=== PATIENT | female | born 1945 | race Caucasian/White ===

== ENCOUNTER 2020-04-02 08:35 | Emergency (ER) | payer OTHER ==
[2020-04-02 08:41] VITALS: BMI 26.7
[2020-04-02] MEDS ORDERED: SODIUM CHLORIDE 0.9% 1000 ML INFUS.BAG IV ONE (09:10)
[2020-04-02] MEDS ORDERED: KETOROLAC TROMETHAMINE 15 MG/ML VIAL IVPUSH ONE (09:10)
[2020-04-02] MEDS ORDERED: ONDANSETRON 4 MG/2 ML VIAL IVPUSH ONE (09:10)
[2020-04-02] MEDS ORDERED: KETOROLAC TROMETHAMINE 15 MG/ML VIAL ONE (09:11)
[2020-04-02 09:28] LABS: BASO % 0.4 % (0-2.0); EOS % 0.8 % (0-4.5); HEMATOCRIT 37.9 % (32.4-45.2); HEMOGLOBIN 12.3 GM/dL (10.7-15.3); LYMPH % 16.8 % (8-40); MCHC 32.4 g/dl (32.0-36.0); MEAN CELL VOLUME 86.5 fl (80-96); MEAN PLT VOLUME 7.7 fl (7.5-11.1); MONO % 7.6 % (3.8-10.2); NEUT % 74.4 % (42.8-82.8); PLATELET COUNT 268 K/MM3 (134-434); RBC 4.38 M/mm3 (3.60-5.2); RDW 14.1 % (11.6-15.6); WHITE BLOOD COUNT 8.5 K/mm3 (4.0-10.0)
[2020-04-02 09:29] LABS: URINE APPEARANCE CLEAR; URINE BILIRUBIN NEGATIVE (NEGATIVE); URINE COLOR YELLOW; URINE GLUCOSE (UA) NEGATIVE (NEGATIVE); URINE KETONE NEGATIVE (NEGATIVE); URINE LEUK ESTERASE NEGATIVE (NEGATIVE); URINE NITRITE NEGATIVE (NEGATIVE); URINE PROTEIN NEGATIVE (NEGATIVE); URINE UROBILINOGEN 0.2 mg/dL (0.2-1.0)
[2020-04-02] MEDS ORDERED: METHOCARBAMOL 500 MG TABLET PO ONE (09:36)
[2020-04-02] MEDS ORDERED: LIDOCAINE 5% TOPICAL PATCH TP ONE (09:37)
[2020-04-02] MEDS ORDERED: ACETAMINOPHEN 1000 MG/100 ML VIAL (NON FORMULARY) IVPB ONE (09:45)
--- NOTE | 2020-04-02 09:53 | PDOC ---
Documentation entered by Hany Munson SCRIBE, acting as scribe for Anni Miguel DO. Anni Miguel DO: This documentation has been prepared by the Arpit mead Xhesika, SCRIBE, under my direction and personally reviewed by me in its entirety. I confirm that the documentation accurately reflects all work, treatment, procedures, and medical decision making performed by me. Attending Attestation - Resident Resident Name: Brice Dexter - ED Attending Attestation I have performed the following: I have examined & evaluated the patient, The case was reviewed & discussed with the resident, I agree w/resident's findings & plan, Exceptions are as noted - HPI HPI: 04/02/20 09:11 The patient is a 74 year old female, with a significant PMH of vitamin d deficiency, vitamin b-12 deficiency, environmental allergies, and Kidney stones who presents to the emergency department with L flank pain since yesterday. Pt reports associated frequency and nausea but no vomiting. Pt reports endorsing chills last night. Pt reports her pain is similar to her previous kidney stones. Pt reports she was suppose to get a epidural 2 weeks ago on her lower lumbar spine by Dr. Hernandez for her chronic lower back pain. The patient denies chest pain, SOB, vision changes, headache, dystharthia, numbness, tingling or weakness. Denies cough, hemoptysis, and constipation. Denies dysuria, and hematuria. Allergies: penicillin, codeine, iodine PCP: Dr. Aditi Rasheed - Physicial Exam PE: 04/02/20 09:17 GENERAL: Awake, alert, and fully oriented, in no acute distress HEAD: No signs of trauma EYES: PERRLA, EOMI, sclera anicteric, conjunctiva clear ENT: Auricles normal inspection, hearing grossly normal, nares patent, oropharynx clear without exudates. Moist mucosa NECK: Normal ROM, supple, no lymphadenopathy, JVD, or masses LUNGS: Breath sounds equal, clear to auscultation bilaterally. No wheezes, and no crackles HEART: +tachy, no murmurs, rubs or gallops ABDOMEN: Soft, nontender, normoactive bowel sounds. No guarding, no rebound. No masses BACK:+ L CVA tenderness. EXTREMITIES: Normal range of motion, no edema. No clubbing or cyanosis. No cords, erythema, or tenderness NEUROLOGICAL: Cranial nerves II through XII grossly intact. Normal speech. SKIN: Warm, Dry, normal turgor, no rashes lesions noted. - Medical Decision Making 04/02/20 09:48 a/p: 74yo female with hx of renal colic and chronic lbp with L flank pain since yesterday -assoc nausea -no vomiting, no diarrhea -was supposed to have an epidural injection [address] lund, but todays pain is different from her chronic pain -will send labs, ua, ucx -will send for ct abd/pelvis without contrast -will medicate for pain 04/02/20 10:15 ua neg labs reviewed and stable 04/02/20 11:09 ct without acute uropathy/no hydro peripelvic cyst L pt just received meds 04/02/20 11:17 pt feeling much better pain improved has a urology appt coming up stable for dc to home Discharge - Discharge Information Problems reviewed: Yes Clinical Impression/Diagnosis: Flank pain Condition: Stable Disposition: HOME - Admission No - Follow up/Referral Referrals: Jake Lund MD [Staff Physician] - Waldemar Maldonado MD [Staff Physician] - - Patient Discharge Instructions - Post Discharge Activity
[2020-04-02 09:58] LABS: ALBUMIN 3.9 g/dl (3.4-5.0); BILIRUBIN,TOTAL 0.4 mg/dL (0.2-1); BLOOD UREA NITROGEN 11.6 mg/dL (7-18); CALCIUM 9.2 mg/dL (8.5-10.1); CREATININE 0.6 mg/dL (0.55-1.3); POTASSIUM 3.6 mmol/L (3.5-5.1); TOT PROT 7.6 g/dl (6.4-8.2)
--- OUTSIDE RECORDS SUMMARY | 2020-04-02 10:07 | XMS ---
:1945 Author Organization [facility] Support Name Relationship Address Phone RE, RETIRED Unavailable Unavailable Unavailable NIKHIL JAFFE Unavailable [address] [place] [address] ANGIE BENAVIDES DAUGHTER [address] [place] [address] RE Unavailable Unavailable Unavailable MANFRED JUNE [address] [place] [address] Re-disclosure Warning The records that you are about to access may contain information from federally- assisted alcohol or drug abuse programs. If such information is present, then the following federally mandated warning applies: This information has been disclosed to you from records protected by federal confidentiality rules (42 CFR part 2). The federal rules prohibit you from making any further disclosure of this information unless further disclosure is expressly permitted by the written consent of the person to whom it pertains or as otherwise permitted by 42 CFR part 2. A general authorization for the release of medical or other information is NOT sufficient for this purpose. The Federal rules restrict any use of the information to criminally investigate or prosecute any alcohol or drug abuse patient.The records that you are about to access may contain highly sensitive health information, the redisclosure of which is protected by Article 27-F of the [facility] Public Health law. If you continue you may haveaccess to information: Regarding HIV / AIDS; Provided by facilities licensed or operated by the [facility] Office of Mental Health; or Provided by the [facility] Office for People With Developmental Disabilities. If such information is present, then the following [facility] mandated warning applies: This information has been disclosed to you from confidential records which are protected by state law. State law prohibits you from making any further disclosure of this information without the specific written consent of the person to whom it pertains, or as otherwise permitted by law. Any unauthorized further disclosure in violation of state law may result in a fine or half-way sentence or both. A general authorization for the release of medical or other information is NOT sufficient authorization for further disclosure. Insurance Providers Payer name Policy type Policy ID Covered Covered democrat's Policy P yang / Coverage democrat ID relationship to Almaraz Inf ormation type almaraz AETNA [id number] SP [id number] MEDICARE AETNA [id number] SP [id number] MEDICARE Results ID Date Data Source [id number] 03/21/2020 04:25:00 PM EDT [facility] Name Value Range Interpretation Description Data Sup porting Code Source(s) Document(s ) SARS [facility] coronavirus 2 RNA This lab was ordered by [facility] and reported by [facility]. Procedure
--- NOTE | 2020-04-02 10:31 | PDOC ---
History of Present Illness - General Chief Complaint: Pain, Acute Stated Complaint: KIDNEY STONES Time Seen by Provider: 04/02/20 08:54 - History of Present Illness Initial Comments: 04/02/20 10:20 74yo F with PMH lower back pain, kidney stone (1991), migranes, presents with left lower back pain since yesterday morning. States it feels like the kidney stone she had in 1991, and it does not feel like her chronic back pain. Reports constant "grabbing" and "punching" left lower back pain, not radiating, some temporary relief with tylenol, worse with movement. ROS postive for nausea, no vomiting. No saddle anesthesia, fever, weakness. No urinary or GI symptoms. No fever. Had an MRI in February 2020 that showed mild left hydronephrosis and a left renal cyst. PMH: as above PSH: hysterectomy (1969) Meds: tylenol Allergies Allergy/AdvReac Type Severity Reaction Status Date / Time iodine Allergy Severe numbness Verified 04/02/20 08:38 Penicillins Allergy Verified 04/02/20 08:38 codeine AdvReac Verified 04/02/20 08:38 PCP: W[facility] GENERAL/CONSTITUTIONAL: No fever or chills. No weakness. HEAD, EYES, EARS, NOSE AND THROAT: No change in vision. No ear pain or discharge. No sore throat. CARDIOVASCULAR: No chest pain or shortness of breath RESPIRATORY: No cough, wheezing, or hemoptysis. GASTROINTESTINAL: nausea. no vomiting, diarrhea or constipation. GENITOURINARY: No dysuria, frequency, or change in urination. MUSCULOSKELETAL: No neck pain. left lower back pain SKIN: No rash NEUROLOGIC: No headache, vertigo, loss of consciousness, or change in strength/sensation. ENDOCRINE: No increased thirst. No abnormal weight change HEMATOLOGIC/LYMPHATIC: No anemia, easy bleeding, or history of blood clots. ALLERGIC/IMMUNOLOGIC: No hives or skin allergy. PE GENERAL: Awake, alert, and fully oriented, in no acute distress. pain with shifting movements HEAD: No signs of trauma, normocephalic, atraumatic EYES: PERRLA, EOMI, sclera anicteric, conjunctiva clear ENT: Auricles normal inspection, hearing grossly normal, nares patent, oropharynx clear without exudates. Moist mucosa NECK: Normal ROM, supple, no lymphadenopathy, JVD, or masses LUNGS: No distress, speaks full sentences, clear to auscultation bilaterally HEART: Regular rate and rhythm, normal S1 and S2, no murmurs, rubs or gallops, peripheral pulses normal and equal bilaterally. ABDOMEN: Soft, nontender, normoactive bowel sounds. No guarding, no rebound. No masses EXTREMITIES : Normal inspection, Normal range of motion, no edema. No clubbing or cyanosis. NEUROLOGICAL: Normal speech, no focal sensorimotor deficits SKIN: Warm, Dry, normal turgor, no rashes or lesions noted BACK: no midline tenderness, no saddle anesthesia. Left CVA tenderness. Positive contralateral straight leg raise with right leg to left lower back Vital Signs Temp Pulse Resp BP Pulse Ox 97.2 F L 115 H 18 134/65 99 04/02/20 08:38 04/02/20 08:38 04/02/20 08:38 04/02/20 08:38 04/02/20 08:38 MDM: 74yo F with PMH lower back pain, kidney stone (1991), migranes, presents with left lower back pain since yesterday morning. Vital notable for tachycardia to 115. Exam notable for Left CVA tenderness and positive contralateral straight leg raise with right leg to left lower back. DDx includes kidney stone, MSK pain, pyelonephritis -CBC, CMP, UA/UC -CT A/P w/o contrast -1000ml NS, toradol, tylenol, robaxin, lidoderm patch, zofran 04/02/20 13:46 Labs: nothing emergent CT A/P: No CT evidence of urolithiasis or hydronephrosis. Similar to a lumbar spine MRI study of 02/27/2020 which partially imaged the retroperitoneum a 2.7 x 2 cm fluid structure is seen within the left renal pelvis inferiorly probably representing a zaynab pelvic cyst and less likely chronic dilatation of a lower pole calyx. If there is ongoing symptomato logy additional evaluation utilizing nonemergent multiphase contrast-enhanced CT/CT urography may be performed. No definite CT findings of acute pathology are identified. Colonic diverticulosis. Marked left and moderate to marked right L4-L5 degenerative facet arthropathy. Diffuse osteoporosis. Patient reports significant improvement in pain after medications. Will DC home with lidoderm patch 04/02/20 13:47 Past History - Medical History Allergies/Adverse Reactions: Allergies Allergy/AdvReac Type Severity Reaction Status Date / Time iodine Allergy Severe numbness Verified 04/02/20 08:38 Penicillins Allergy Verified 04/02/20 08:38 codeine AdvReac Verified 04/02/20 08:38 Home Medications: Ambulatory Orders Lidocaine 5% Patch [Lidoderm Patch -] 1 patch TP DAILY #30 patch 04/02/20 Anemia: Yes Asthma: Yes Cancer: No Cardiac Disorders: No CVA: No COPD: No CHF: No Dementia: No Diabetes: No GI Disorders: Yes Disorders: No HTN: No Hypercholesterolemia: No Kidney Stones: Yes Liver Disease: No Seizures: No Thyroid Disease: No Other medical history: chronic back pain - Surgical History Abdominal Surgery: Yes Appendectomy: No Cardiac Surgery: No Cholecystectomy: No Lung Surgery: No Neurologic Surgery: No Orthopedic Surgery: No - Immunization History Immunization Up to Date: Yes - Psycho-Social/Smoking History Smoking History: Never smoked Have you smoked in the past 12 months: No *Physical Exam - Vital Signs Last Vital Signs Temp Pulse Resp BP Pulse Ox 97.2 F L 115 H 18 134/65 99 04/02/20 08:38 04/02/20 08:38 04/02/20 08:38 04/02/20 08:38 04/02/20 08:38 ED Treatment Course - LABORATORY CBC & Chemistry Diagram: 04/02/20 09:20 04/02/20 09:20 - ADDITIONAL ORDERS Additional order review: Laboratory Results 04/02/20 04/02/20 09:20 09:05 Sodium 140 Potassium 3.6 Chloride 108 H Carbon Dioxide 27 Anion Gap 5 L BUN 11.6 Creatinine 0.6 Est GFR (CKD-EPI)AfAm 104.80 Est GFR (CKD-EPI)NonAf 90.42 Random Glucose 98 Calcium 9.2 Total Bilirubin 0.4 AST 15 ALT 17 Alkaline Phosphatase 104 Total Protein 7.6 Albumin 3.9 Urine Color Yellow Urine Appearance Clear Urine pH 5.0 Ur Specific [place] 1.014 Urine Protein Negative Urine Glucose (UA) Negative Urine Ketones Negative Urine Blood Negative Urine Nitrite Negative Urine Bilirubin Negative Urine Urobilinogen 0.2 Ur Leukocyte Esterase Negative 04/02/20 09:20 RBC 4.38 MCV 86.5 MCHC 32.4 RDW 14.1 MPV 7.7 Neutrophils % 74.4 D Lymphocytes % 16.8 D Monocytes % 7.6 Eosinophils % 0.8 Basophils % 0.4 - Medications Given in the ED: ED Medications Discontinued Medications Generic Name Dose Route Start Last Admin Trade Name Marilyn PRBerhane Reason Stop Dose Admin Ketorolac Tromethamine 15 mg 04/02/20 09:10 04/02/20 09:22 Toradol Injection - IVPUSH 04/02/20 09:11 15 mg ONCE ONE Administration Ondansetron HCl 4 mg 04/02/20 09:10 04/02/20 09:23 Zofran Injection IVPUSH 04/02/20 09:11 4 mg ONCE ONE Administration Sodium Chloride 1,000 ml 04/02/20 09:10 04/02/20 09:22 Normal Saline - IV 04/02/20 09:11 1,000 ml ONCE ONE Administration Discharge - Discharge Information Problems reviewed: Yes Clinical Impression/Diagnosis: Flank pain Condition: Stable Disposition: HOME - Additional Discharge Information Prescriptions: Lidocaine 5% Patch [Lidoderm Patch -] 1 patch TP DAILY #30 patch - Follow up/Referral Referrals: Waldemar Maldonado MD [Staff Physician] - Jake Lund MD [Staff Physician] - - Patient Discharge Instructions Patient Printed Discharge Instructions: DI for Low Back Pain Additional Instructions: You were seen in the ER for lower back pain, which improved with non-narcotic pain medication. Your labs and CT scan did not show any emergent problem or evidence of a kidney stone. The CT scan did show a left renal cyst, which you should follow up about with the urologist we referred you to. Please follow up with your primary doctor within one week. You can continue to take tylenol as directed on the label for your pain, and we sent a prescription for lidocaine patches to your pharmacy. Please return to the ER for fever, urinary incontinence or retention, pain with urination, leg numbness/weakness, or any other reason. - Post Discharge Activity
[2020-04-02] MEDS ORDERED: METHOCARBAMOL 500 MG TABLET ONE (10:58)
[2020-04-02] MEDS ORDERED: ACETAMINOPHEN INJECTION 100 ML IVPB ONE (10:59)
[2020-04-02] MEDS ORDERED: LIDOCAINE 5% TOPICAL PATCH ONE (10:59)
[2020-04-02 11:20] VITALS: BP 113/74; PULSE 75; TEMP 98.3
[2020-04-02] MEDS ORDERED: LIDOCAINE PATCH REMOVAL MC SCH (22:00)
== END 2020-04-02 12:17 | disposition home or self-care (01) ==
LOC: JER 08:35 → SUPCPDRO 08:35 → JER 12:17
PROC: 3E0333Z Introduction of Anti-inflammatory into Peripheral Vein, Percutaneous Approach (ICD-10-PCS; principal; 2020-04-02)
PROC: 3E033GC Introduction of Other Therapeutic Substance into Peripheral Vein, Percutaneous Approach (ICD-10-PCS; 2020-04-02)
DX: R10.9 Unspecified abdominal pain (principal)
CPT/HCPCS: 36415; 74176-TC; 80053; 81003; 85025; 87077; 87086; 99284-25; J0131

== ENCOUNTER 2021-06-16 09:16 | Emergency (ER) | payer OTHER ==
[2021-06-16 09:25] VITALS: BP 116/78; PULSE 85; TEMP 97.7; BMI 24.8
== END 2021-06-16 13:27 | disposition home or self-care (01) ==
LOC: JER 09:16
DX: R05.1 Acute cough (principal); J06.9 Acute upper respiratory infection, unspecified; Z11.52 Encounter for screening for COVID-19
CPT/HCPCS: 87804; 99283-25; C9803; U0003; U0005

== ENCOUNTER 2024-01-30 08:26 | Emergency (ER) | payer OTHER ==
[2024-01-30 08:32] VITALS: BP 122/74; PULSE 92; RESP 18; TEMP 97.5; BMI 27.4
[2024-01-30] MEDS ORDERED: predniSONE 20 MG TABLET (UD) ONE (08:55)
[2024-01-30] MEDS: predniSONE 20 MG TABLET (UD) PO ONE (09:00)
== END 2024-01-30 09:20 | disposition home or self-care (01) ==
LOC: JER 08:26 → JERFT 08:26
DX: T63.441A Toxic effect of venom of bees, accidental (unintentional), initial encounter (principal); L29.9 Pruritus, unspecified; L53.9 Erythematous condition, unspecified; R21 Rash and other nonspecific skin eruption
CPT/HCPCS: 99283-25